=== PATIENT | male | born 1975 | race Caucasian/White ===

== ENCOUNTER 2019-12-12 21:53 | Emergency (ER) | payer BC ==
[~2019-12-12] VITALS: Ht 167.6 cm; Wt 98.4 kg
[2019-12-12 21:58] VITALS: BP 134/84
--- NOTE | 2019-12-12 22:02 | NUR ---
PT AMBULATED TO ER BED 05
--- NOTE | 2019-12-12 22:17 | NUR ---
RADIOLOGY AT BEDSIDE
[2019-12-12] MEDS ORDERED: KETOROLAC 15 MG/ML VIAL IM ONE (22:35)
[2019-12-12] MEDS ORDERED: HYDROcodone/APAP 10/325 MG 1 TAB TAB PO ONE (22:35)
--- NOTE | 2019-12-12 22:47 | NUR ---
PT WAS PLAYING WITH HIS CHILDREN THIS EVENING, FELL AND HIS ENTIRE BODY WEIGHT LANDED ON HIS RIGHT ARM, CAUSING SEVERE PAIN. HE IS UNABLE TO MOVE HIS RIGHT INDEX AND LITTLE FINGER DUE TO TOO MUCH PAIN. NO DEFORMITY NOTED, SKIN INACT. +3 RADIAL PULSE. PT SITTING AT BEDSIDE. NKA HX - ASTHMA
--- NOTE | 2019-12-12 23:26 | NUR ---
Placed a sugartong splint on PT's right arm per MD request. Placed right arm in a sling for comfort.
[2019-12-12 23:41] VITALS: BP 132/79
--- NOTE | 2019-12-12 23:42 | NUR ---
Patient discharged with v/s stable. Written and verbal after care instructions given and explained. Patient alert, oriented and verbalized understanding of instructions. Ambulatory with steady gait. All questions addressed prior to discharge. ID band removed. Patient advised to follow up with PMD. Rx of TYLENOL #3 given. Patient educated on indication of medication including possible reaction and side effects. Opportunity to ask questions provided and answered.
== END 2019-12-12 23:42 | disposition home or self-care (01) ==
LOC: MED 21:53
DX: S62.316A Displaced fracture of base of fifth metacarpal bone, right hand, initial encounter for closed fracture (principal); J45.909 Unspecified asthma, uncomplicated; W19.XXXA Unspecified fall, initial encounter; Y93.89 Activity, other specified; Y92.89 Other specified places as the place of occurrence of the external cause; Y99.8 Other external cause status
CPT/HCPCS: 29125; 73090; 73130; 96372; 99284; J1885; Q0092

== ENCOUNTER 2023-09-03 15:07 | Emergency (ER) | payer BC ==
[~2023-09-03] VITALS: Ht 167.6 cm; Wt 99.8 kg
[2023-09-03 15:17] VITALS: BP 157/82; PULSE 105; RESP 18; TEMP 100.1; O2SAT 97
[2023-09-03] MEDS: ACETAMINOPHEN EXTRA STRENGTH 500 MG TAB PO ONE (16:40)
[2023-09-03] MEDS: DEXAMETHASONE 10 MG/ML VIAL IM ONE (16:42)
[2023-09-03] MEDS: IPRATROPIUM 0.02% 0.5 MG/2.5 ML NEBU INH ONE (16:49)
[2023-09-03] MEDS: ALBUTEROL 0.083% 2.5 MG/3 ML NEBU INH ONE (16:49)
[2023-09-03 16:53] VITALS: PULSE 96; RESP 16; O2SAT 97
[2023-09-03 17:27] LABS: FLU A ANTIGEN NEGATVE (NEGATIVE); FLU B ANTIGEN NEGATIVE (NEGATIVE)
[2023-09-03 18:13] VITALS: BP 150/82; PULSE 99; RESP 18; TEMP 99; O2SAT 99
[2023-09-03] MEDS ORDERED: ALBU0.0912 IH (18:23)
[2023-09-03] MEDS ORDERED: ALBU0.5S1 NEB (18:23)
[2023-09-03] MEDS ORDERED: PROM118S5 PO (18:23)
[2023-09-03] MEDS ORDERED: PRED20TA5 PO (18:23)
== END 2023-09-03 18:41 | disposition home or self-care (01) ==
LOC: MED 15:07
DX: J45.901 Unspecified asthma with (acute) exacerbation (principal); B34.9 Viral infection, unspecified; Z20.822 Contact with and (suspected) exposure to COVID-19; Z79.899 Other long term (current) drug therapy
CPT/HCPCS: 71045; 87426; 87804; 94640; 96372; 99284; J1100; J7613; J7644